=== PATIENT | female | born 1975 | race Caucasian/White ===

== ENCOUNTER 2018-08-08 07:25 | Emergency (ER) | payer BC ==
--- OUTSIDE RECORDS SUMMARY | 2018-08-08 07:41 | XMS REPORT ---
:1975 External Reference #:[id number] Author Organization [facility] Address [address], [address] [address] Phone [phone] Care Team Providers Name Role Phone Daiana Blair M.D. Care Team Information Presentation Manager Unavailable Johnathon Mcarthur MD Primary Care Physician Unavailable Payers Type Date Identification Numbers Payment Provider Subscriber Health Maintenance Policy Number: [facility] [id number] Group Name: [employer] [address] [address] PayID: [id number] [place] [address] Problems Date Description Provider Status Onset: 08/01/2018 Thoracic aortic ectasia Alma Blair Active Onset: 08/01/2018 Essential hypertension Alma Blair Active Onset: 01/08/2018 Sarcoidosis ECHO Active Onset: 01/08/2018 Aneurysm of thoracic aorta ECHO Active Family History Date Family Member(s) Problem(s) Comments Father Sleep Apnea Living Father Hypertension Father Arthritis Mother Sleep Apnea Living Mother Arthritis First Sister Asthma Social History Type Date Description Comments Marital Status Lives With Spouse 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 Use Occasionally consumes alcohol Smoking Patient is a former smoker less than 1/2 ppw Daily Caffeine Consumes on average 2 cups of coffee per day Exercise Type/Frequency Exercises regularly Allergies, Adverse Reactions, Alerts Date Description Reaction Status Severity Comments 07/24/2018 Levaquin active Hives Medications Medication Date Status Form Strength Qnty SIG Indications Ordering Provider Labetalol HCL Active Tablets 100mg 180tab 1 tablet I77.810 Kamala Blair s by mouth Alma twice a day Vitamin D 0 Active Tablets 1000Unit 1 by Unknown 000 mouth qd Nexium Active Capsules DR 40mg 1 by Unknown 000 mouth every day Ranitidine Active Tablets 150mg 1 by Unknown HCL 000 mouth every day prn Gabapentin Active Capsules 300mg 1po qam Unknown 000 and 2po qpm Ventolin HFA Active Aerosol 108(90Base prn Unknown 000 ) mcg/Act Zyrtec Active Tablets 10mg 1 by Unknown Allergy 000 mouth every day Ramipril Active Capsules 1.25mg 1po qd Blue, 000 prn MD Johnathon Flaxseed Oil Active Capsules 1200mg 1po qd Unknown 000 Vitamin B Active Tablets 1 by Unknown Complex 000 mouth every day Zantac 150 Active Tablets 150mg 1 by Unknown Maximum 000 mouth Strength every night at bedtime [facility] [place] Wort Active Capsules 300mg 1po bid Unknown 000 Vital Signs Date Vital Result Comment 08/01/2018 BP Systolic Right Arm 172 mmHg BP Diastolic Right Arm 92 mmHg Heart Rate 83 /min Respiratory Rate 16 /min Weight 67.00 lb Height 65 inches 5'5" BMI (Body Mass Index) 11.1 kg/m2 Results Description No Information Procedures Date CPT Code Description Status 08/01/2018 79302 Electrocardiogram Complete Completed 01/08/2018 12464 Echo, transthoracic, complete w/ Doppler and Color Flow Completed 01/30/2017 00214 Echo, transthoracic, complete w/ Doppler and Color Flow Completed 12/23/2015 2016m Unapplied 2015 Completed 11/04/2015 18522 Echo, transthoracic, complete w/ Doppler and Color Flow Completed Encounters Type Date Location Provider CPT E/M Dx Office Visit 08/01/2018 9:40a [facility] [address] I77.810 [place] Plan of Care Future Appointment(s):01/09/2019 10:00 am - Alma Blair at [facility]12/31/2018 9:15 am - ECHO at [id number]/03/2018 - Dimitris [id number] Thoracic aortic [id number] Essential (primary) hypertensionNew Medication:Labetalol HCL 100 mgNew Xrays:Cta, Pelvis, W/ & W /O ContrastCta Abdomen W/ & W/O ContrastEchocardiogram W/Color FlowFollow up :*needs CTA abdomen and pelvis dx: thoracic aortic dilation *start labetolol 100mg PO BID *needs repeat echocardiogram in December 2018 dx: thoracic aortic dilatation with follow up with me one week later
--- OUTSIDE RECORDS SUMMARY | 2018-08-08 07:41 | XMS REPORT | Continuity of Care Document ---
:1975 Author Organization [facility] Office Address [address] [place] [address] Phone Care Team Providers Name Role Phone Johnathon Mcarthur MD Unavailable Daiana Blair MD Unavailable Baron Lee MD Unavailable Sloan Leger Unavailable Dr. Alma Blair MD Unavailable Unavailable Unavailable Problems ANEMIA (D64.9) (285.9) MD Daiana Blair ASCENDING AORTIC ANEURYSM (I71.2) (441.2) MD Daiana Blair Prognosis: Ascending and Arch aneurysm. as of 19-Jul-2018 ASTHMA (J45.909) (493.90) VERONICA Barnes Karla DYSPNEA (R06.00) (786.09) MD Daiana Blair ENVIRONMENTAL ALLERGIES (Z91.09) (V15.09) MD Daiana Blair GERD (GASTROESOPHAGEAL REFLUX DISEASE) (K21.9) (530.81) MD Daiana Blair HIP PAIN, BILATERAL (M25.551) (719.45) MD Daiana Blair HISTORY OF SHINGLES (Z86.19) (V12.09) MD Daiana Blair HTN (HYPERTENSION) (I10) (401.9) MD Daiana Blair INFLUENZA B (J10.1) (487.1) MD Daiana Blair NEUROPATHY (G62.9) (355.9) MD Daiana Blair OBESITY (E66.9) (278.00) MD Daiana Blair SARCOIDOSIS, LUNG (D86.0) (135) MD Daiana Blair Comments: Mediastinal LAD, 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.9) MD Daiana Blair Allergies and Adverse Reactions Levaquin *FLUOROQUINOLONES* (Allergy) Reaction: Hives Medications Gabapentin 300 MG Oral Capsule; 2 (two) Capsule three times daily for 0 days Ordered: 21-Aug-2017 Start: 21-Aug-2017 Quantity: 540 MD Daiana Blair Refills: 3 NexIUM 40 MG Oral Capsule Delayed Release; 1 (one) Capsule DR daily for 90 days Ordered: 26-Apr-2018 Start: 26-Apr-2018 Quantity: 90 [facility] GOMEZ Refills: 3 RaNITidine HCl 150 MG Oral Tablet; 1 (one) Tablet daily for 90 days Ordered: 25-Jan-2018 Start: 25-Jan-2018 Quantity: 90 DeFruscio, JASON Bria Refills: 4 Ventolin HFA 108 (90 Base) MCG/ACT Inhalation Aerosol Solution; 1 (one) Puff QID PRN for 0 days Ordered: 21-Nov-2017 Start: 21-Nov-2017 Quantity: 1 MD Daiana Blair Refills: 11 Vitamin D 1000 UNIT Oral Tablet; 1 daily (1000 UNIT) ZYRTEC ALLERGY, 10MG (Oral Tablet); (10 MG) ALBUTEROL SULFATE, (2.5 Status: Inactive MG/3ML)0.083% (Inhalation Nebulization Solution); ((2.5 MG/3ML) 0.083%) Fish Oil Concentrate 1000 MG Status: Inactive Oral Capsule; 1 (one) daily (1000 MG) FLONASE ALLERGY RELIEF, 50MCG/ACT (Nasal Suspension); 1 (one) Suspension Suspension twice daily for 0 days Ordered: 02-Jun-2016 Start: 21-Jan-2016 End: 02-Jun-2016 Quantity: 3 VERONICA Hall Status: Inactive Refills: 3 Folic Acid 1 MG Oral Tablet; 1 (one) Tablet daily for 0 days Ordered: 2016 Start: 02-Jun-2016 End: 21-Aug-2017 Quantity: 30 BarnesVERONICA Status: Inactive Refills: 6 MAGNESIUM GLUCONATE, 250MG Status: Inactive (Oral Tablet); 1 daily (250 MG) MONTELUKAST SODIUM, 10MG Status: Inactive (Oral Tablet); (10 MG) PredniSONE 5 MG Oral Tablet; 2 (two) Tablet daily for 30 days Ordered: Start: 30-Nov-2017 End: 26-Dec-2017 Quantity: 60 BarnesVERONICA Status: Inactive Refills: 1 PREDNISONE, 5MG (Oral Tablet); one Tablet Tablet daily for 30 days Ordered: 21-Jan-2016 Start: 15-Oct-2015 End: 21-Jan-2016 Quantity: 30 VERONICA May Status: Inactive Refills: 1 PREDNISONE, 5MG (Oral Tablet); 1 (one) Tablet daily as directed for 30 days Ordered: 03-May-2016 Start: 03-May-2016 End: 02-Jun-2016 Quantity: 100 Areli, Jasson Owen Status: Inactive Refills: 0 Comments: start 30 mg (6 tabs) x 2 days25 mg (5 tabs) x 1 day and decrease by 1 tab daily and remain at 10 mg (2 tabs) per day until notified Ramipril 5 MG Oral Capsule; 1 Capsule daily for 0 days Ordered: 26-Dec-2017 Start: 21-Nov-2017 End: 26-Dec-2017 Quantity: 30 VERONICA Barnes Status: Inactive Refills: 1 SYMBICORT, 160-4.5MCG/ACT Status: Inactive (Inhalation Aerosol); (160-4.5 MCG/ACT) Tamiflu 75 MG Oral Capsule; 1 (one) Capsule BID for 0 days Ordered: 2017 Start: 21-Nov-2017 End: 26-Dec-2017 Quantity: 10 VERONICA Barnes Status: Inactive Refills: 0 THEOPHYLLINE ER, 200MG (Oral Status: Inactive Tablet Extended Release 12 Hour); (200 MG) Vitamin B Complex Oral Status: Inactive Tablet; daily Zofran ODT 4 MG Oral Tablet Disintegrating; 1 (one) Tablet Disperse Tablet Disperse daily with methotrexate if needed for 0 days Ordered: 21-Aug-2017 Start: 21-Jan-2016 End: 21-Aug-2017 Quantity: 5 VERONICA Barnes Status: Inactive Refills: 1 ACIDOPHILUS (Oral Capsule) End: 01-Sep-2016 Status: Discontinued IRON SUPPLEMENT, 325 (65 End: 02-Jun-2016 Fe)MG (Oral Tablet); 1 daily Status: Discontinued (325 (65 Fe) MG) METHOTREXATE, 2.5MG (Oral Tablet); 3 (three) Tablet once a week for 0 days Ordered: 01-Sep-2016 Start: 02-Jun-2016 End: 01-Sep-2016 Quantity: 15 VERONICA Hall Status: Discontinued Refills: 3 PREDNISONE, 1MG (Oral Tablet); 1 am, 5 pm Tablet two times daily for 0 days Ordered: 01-Sep-2016 Start: 01-Apr-2016 End: 01-Sep-2016 Quantity: 90 VERONICA Hall Status: Discontinued Refills: 3 RAMIPRIL, 5MG (Oral Capsule); End: 01-Sep-2016 daily (5 MG) Status: Discontinued VITAMIN C ER, 500MG (Oral End: 02-Jun-2016 Capsule Extended Release); 1 Status: Discontinued daily (500 MG) XOPENEX, 1.25MG/3ML End: 01-Sep-2016 (Inhalation Nebulization Status: Discontinued Solution); as needed (1.25 Comments: Medication taken as needed. MG/3ML) Flaxseed Oil 1200 MG Oral Status: Other Capsule; (1200 MG) Labetalol HCl 100 MG Oral Start: 01-Aug-2018 Tablet; (100 MG) Status: Other Comments: Qty: 180 tabs; Refills: 3 Ramipril 1.25 MG Oral Status: Other Capsule; (1.25 MG) St Reyn[place] Wort 300 MG Oral Status: Other Capsule; (300 MG) Procedures EXHALED NITRIC OXIDE MEASUREMENT VERONICA Barnes Status: Completed 2017 (51105) REST OXIMETRY (42467) Pooja Melgar Status: Completed 21-Aug-2017 RESPIRATORY FLOW VOLUME LOOP Pooja Melgar Status: Completed 21-Aug-2017 (04175) RESPIRATORY FLOW VOLUME LOOP MD Daiana Blair Status: Completed 01-Dec-2016 (34962) PRE AND POST W/ RT (32398) MD Daiana Blair Status: Completed 01-Dec-2016 RESPIRATORY FLOW VOLUME LOOP MD Daiana Blair Status: Completed 01-Sep-2016 (94440) PRE AND POST W/ RT (15839) MD Daiana Blair Status: Completed 01-Sep-2016 AIRFLOW RESISTANCE MEASUREMENT: MD Daiana Blair Status: Completed 2015 PULM FUNCT TEST OSCILLOMETRY (09113) TOTAL VITAL CAPACITY (73261) MD Daiana Blair Status: Completed 22-Mar-2016 TOTAL BODY PLETHYSMOGRAPHY: AIRWAY MD Daiana Blair Status: Completed Feb-2016 CLOSING VOLUME MEASUREMENT: PULM FUNCT TST PLETHYSMOGRAP (65392) RESPIRATORY FLOW VOLUME LOOP MD Daiana Blair Status: Completed 22-Mar-2016 (23323) THORACIC GAS VOLUME: AIRWAY MD Daiana Blair Status: Completed 22-Mar-2016 CLOSING VOLUME MEASUREMENT: PULM FUNCTION TEST BY GAS (83670) DLCO (CARBON MONOXIDE DIFFUSING MD Daiana Blair Status: Completed 2015 CAPACITY) (23149) PRE AND POST (46961) MD Daiana Blair Status: Completed 22-Mar-2016 RESPIRATORY FLOW VOLUME LOOP MD Daiana Blair Status: Completed 24-Jun-2015 (14454) FeNO Barnes, DICE MANAGER Karla Status: Completed Comments: 15 PPB Flu Vaccine Barnes, DICE MANAGER Karla Status: Completed 14-Aug-2017 Comments: Workplace Flu Vaccine Barnes, DICE MANAGER Karla Status: Completed 29-Sep-2015 PFT MD Daiana Blair Status: Completed 21-Aug-2017 Comments: Minimal Obstruction. Without Reversibility. PFT MD Daiana Blair Status: Completed 22-Mar-2016 Comments: Moderate Obstruction. Without Reversibility. No Restriction. Normal Diffusion Capacity. PFT MD Daiana Blair Status: Completed 01-Sep-2016 Comments: Moderate Obstruction. PFT MD Daiana Blair Status: Completed 01-Dec-2016 Comments: Moderate Obstruction. Without Reversibility. PFT MD Daiana Blair Status: Completed Comments: Moderate Obstruction. Without Reversibility. Uterline Fibroids MD Daiana Blair Status: Completed Wedge Resection MD Daiana Blair Status: Completed 06-Jan-2016 Comments: Dr Alcantar Procedure: EXHALED NITRIC OXIDE MEASUREMENT Date: 26-Dec-2017 11:08 ([id number])Result: VERONICA Barnes Karla [Questions] Use of inhaled or oral corticosteroid: #14 Comments: Evaluated patient's nitric oxide. The results were ppb. Procedure: PRE AND POST W/ RT ([id number])Result: Date: 21-Aug-2017 14:58 Hemoptysis: No Status: Completed 21-Aug-2017 15:02 MD Daiana Blair Procedure: CT THORAX W/O DYE ([id number])Result: Status: Completed 01-Dec-2016 16:05 Are you or could you become MD Daiana Blair ?: No; When was you last CXR/CT?: over week ago; Refrigeration Service Inspector: DIAN Díaz Procedure: CT THORAX W/O DYE ([id number])Result: Status: Completed 01-Dec-2016 8:59 Are you or could you become MD Daiana Blair ?: No; When was you last CXR/CT?: over week ago; Refrigeration Service Inspector: DIAN Díaz Procedure: CT THORAX W/O DYE ([id number])Result: Status: Completed 15-Oct-2015 14:22 Are you or could you become MD Daiana Blair ?: No; When was you last CXR/CT?: OVER A WEEK AGO; Refrigeration Service Inspector: DIAN Díaz Procedure: PRE AND POST ([id number])Result: Status: Completed 24-Jun-2015 9:23 Hemoptysis: No MD Daiana Blair Procedure: CHEST X-RAY, PA AND LATERAL Date: 24-Jun-2015 9:02 ([id number])Result: Status: Completed 24-Jun-2015 9:03 Are you or could you become MD Daiana Blair ?: No; When was you last CXR/CT?: over a week ago; Refrigeration Service Inspector: DIAN Díaz Immunizations Influenza (3 years and up) On: 30-Jun-2014 Comments:work Influenza (3 years and up) On: 29-Sep-2015 Comments:approx. date Influenza (3 years and up) On: 29-Aug-2016 Family History Asthma Status: Active Comments: Sister. Sleep Apnea Status: Active Comments: Mother. Father. Social History Alcohol use: Occasional alcohol use. Caffeine use: Coffee. 2 servings / day. 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 No drug use Tobacco use: Former smoker. Comments: started age 20, quit age 38. Less than 1/2 pack per week max Former smoker Female Plan of Treatment AIRFLOW RESISTANCE MEASUREMENT: PULM Start: 17-Jan-2019 Intent FUNCT TEST OSCILLOMETRY (93434) DLCO (CARBON MONOXIDE DIFFUSING Start: 17-Jan-2019 Intent CAPACITY) (70227) EXHALED GAS NITRIC OXIDE MEASUREMENT Start: 17-Jan-2019 Intent (MOLES/VOLUME) (93029) PRE AND POST (37237) Start: 17-Jan-2019 Intent RESPIRATORY FLOW VOLUME LOOP (31728) Start: 17-Jan-2019 Intent THORACIC GAS VOLUME: AIRWAY CLOSING Start: 17-Jan-2019 Intent VOLUME MEASUREMENT: PULM FUNCTION TEST BY GAS (90171) TOTAL BODY PLETHYSMOGRAPHY: AIRWAY Start: 17-Jan-2019 Intent CLOSING VOLUME MEASUREMENT: PULM FUNCT TST PLETHYSMOGRAP (15784) TOTAL VITAL CAPACITY (23118) Start: 17-Jan-2019 Intent COMPLETE ECHOCARDIOGRAPHY (81365) Start: 26-Dec-2017 Intent Comments: CV Group CXR PA & LAT (40140) Start: 26-Dec-2017 Intent COMPLETE ECHOCARDIOGRAPHY (92951) Start: 25-Jan-[address] HIP WO CONTRAST (57493) Start: 01-Sep-2016 Intent Comments: Avascular Necrosis ECHOCARDIOGRAM (93995) Start: 02-Nov-2015 Intent BRONCHOSCOPY WITH FLUOROSCOPY (73841) Start: 15-Oct-2015 Intent BRONCHOSCOPY IN ENDO (27122) Start: 24-Jun-2015 Intent Medical; FULL PFT 30 - Start: 16-Jan-2019 10:15 Appointment [facility]; FOLLOW UP 15 - 6 mnth fu 15 w/full Start: 16-Jan-2019 10:45 Appointment Request [facility] MD Daiana Blair Influenza A+B Ag, EIA (11547) Start: 21-Nov-2017 9:18 Request Comments: Rapid flu swab for Influenza A&B and RSV. COMPREHENSIVE METABOLIC PANEL, CMP (81220) Start: 21-Aug-2017 15:27 Request ANGTENSIN 1-CONVRT ENZYM (36731) Start: 21-Aug-2017 15:27 Request CBC & PLATELETS (36697) Start: 22-Mar-2016 12:05 Request COMPREHENSIVE METABOLIC PANEL, CMP (24663) Start: 22-Mar-2016 12:05 Request CBC, PLATELETS & AUT DIFF (35467) Start: 21-Jan-2016 15:31 Request FERRITIN (27296) Start: 21-Jan-2016 15:31 Request IRON BINDING CAPACITY (TIBC) (33985) Start: 21-Jan-2016 15:31 Request IRON ([id number]) Start: 21-Jan-2016 15:31 Request COMPREHENSIVE METABOLIC PANEL, CMP (50160) Start: 21-Jan-2016 15:30 Request PTT (ACTIVATED PARTIAL THROMBOPLASTIN TIME) (94077) Start: 03-Jul-2015 11:36 Request PT (PROTHROMBIN TIME) (68485) Start: 03-Jul-2015 11:36 Request HYPERSENS PNEUMO 2 (88824) Start: 24-Jun-2015 10:44 Request HYPERSENS PNEUMO 1 (03425) Start: 24-Jun-2015 10:44 Request BRAIN NATIURETIC PEPTIDE ([id number]) Start: 24-Jun-2015 10:44 Request ASCENDING AORTIC ANEURYSM : Referral to Cardiology - CV Group Dr. Blair Indication: ASCENDING AORTIC ANEURYSM SARCOIDOSIS, LUNG : Referral to Rheumatology - [facility] Indication: SARCOIDOSIS, LUNG DYSPNEA : Pt Education: Bronchoscopy Indication: DYSPNEA ASCENDING AORTIC ANEURYSM : Referral to Cardiology - [facility] Payal Blair Indication: ASCENDING AORTIC ANEURYSM ASTHMA : Pt Education: Bronchoscopy Indication: ASTHMA ASCENDING AORTIC ANEURYSM : Referral to Cardiology - [facility]. Aortic aneurysm and tachycardia. Indication: ASCENDING AORTIC ANEURYSM Results COMPREHENSIVE METABOLIC Ordered On: 31-Aug-2016 9:34 PANEL, CMP ([id number]) 31-Aug-2016 GFR INTERPRETATION (Normal) Comments: NORMAL KIDNEY FUNCTION OR MILD DISEASE - GFR >OR=60CHRONIC KIDNEY DISEASE - GFR 15 - 59RENAL FAILURE - GFR <15 Est. GFR calculation based on the MDRDstudy equation, which assumes a steadystate for creatinine. Est. GFR should notbe used for medication dosing.Unless otherwise specified, testing performed by [facility] [place] [address] [address] GFR ( AMER) >60 {ml/min/1.73m2} (Normal) GFR >60 {ml/min/1.73m2} (Normal) ALT (SGPT) 31 U/L (Normal) Range: 12 U/L - 78 U/L AST (SGOT) 19 U/L (Normal) Range: 11 U/L - 39 U/L BILIRUBIN,TOTAL 0.5 mg/dL Range: 0.0 mg/dL - 1.0 mg/dL (Normal) ALKALINE PHOSPHATASE 135 U/L Range: 45 U/L - 117 U/L (Abnormal) ALB/GLOB RATIO 1.0 {RATIO} (Normal) GLOBULIN 3.6 g/dL (Normal) Range: 2.7 g/dL - 4.3 g/dL ALBUMIN 3.7 g/dL (Normal) Range: 3.5 g/dL - 4.6 g/dL TOTAL PROTEIN 7.3 g/dL Range: 6.4 g/dL - 8.2 g/dL (Normal) CALCIUM 9.2 mg/dL (Normal) Range: 8.4 mg/dL - 10.2 mg/dL GLUCOSE 87 mg/dL (Normal) Range: 70 mg/dL - 99 mg/dL BUN/CREAT RATIO 16.3 {RATIO} Range: 10.0 {RATIO} - 20.0 {RATIO} (Normal) CREATININE 0.80 mg/dL Range: 0.60 mg/dL - 1.00 mg/dL (Normal) UREA NITROGEN 13 mg/dL Range: 7 mg/dL - 24 mg/dL (Normal) ANION GAP 8 mmol/L (Normal) Range: 7 mmol/L - 16 mmol/L CO2 30 mmol/L (Normal) Range: 22 mmol/L - 31 mmol/L CHLORIDE 105 mmol/L (Normal) Range: 100 mmol/L - 108 mmol/L POTASSIUM 4.3 mmol/L (Normal) Range: 3.6 mmol/L - 5.2 mmol/L SODIUM 143 mmol/L (Normal) Range: 136 mmol/L - 145 mmol/L CBC, PLATELETS & AUT DIFF Ordered On: 31-Aug-2016 9:34 ([id number]) 31-Aug-2016 BASO # 0.1 10*3/uL (Normal) Range: 0.0 10*3/uL - 0.2 10*3/uL Comments: Unless otherwise specified, testing performed by [facility] of [address] [address] EOS # 0.6 10*3/uL (Abnormal) Range: 0.0 10*3/uL - 0.5 10*3/uL MONO # 0.5 10*3/uL (Normal) Range: 0.0 10*3/uL - 0.8 10*3/uL LYMPH # 1.6 10*3/uL (Normal) Range: 1.2 10*3/uL - 4.8 10*3/uL NEUT # 5.4 10*3/uL (Normal) Range: 1.8 10*3/uL - 7.7 10*3/uL BASO % 0.7 % (Normal) Range: 0.0 % - 4.0 % EOS % 7.8 % (Abnormal) Range: 0.0 % - 5.0 % MONO % 6.3 % (Normal) Range: 0.0 % - 8.0 % LYMPH % 19.4 % (Normal) Range: 16.0 % - 52.0 % NEUT % 65.8 % (Normal) Range: 35.0 % - 75.0 % MPV 7.7 fL (Normal) Range: 7.1 fL - 10.7 fL PLT 356 10*3/uL (Normal) Range: 150 10*3/uL - 450 10*3/uL RDW 13.6 % (Normal) Range: 10.5 % - 14.5 % MCHC 33.3 g/dL (Normal) Range: 32.0 g/dL - 36.0 g/dL MCH 28.6 pg (Normal) Range: 27.0 pg - 32.0 pg MCV 86.0 fL (Normal) Range: 80.0 fL - 95.0 fL HCT 38.9 % (Normal) Range: 36.0 % - 47.0 % HGB 12.9 g/dL (Normal) Range: 12.0 g/dL - 16.0 g/dL RBC 4.52 10*6/uL (Normal) Range: 4.00 10*6/uL - 5.40 10*6/uL WBC 8.3 10*3/uL (Normal) Range: 4.1 10*3/uL - 11.0 10*3/uL CBC & PLATELETS (AUTO) Ordered On: 03-Jul-2015 11:37 Comments: Please run manual ([id number]) differential 03-Jul-2015 CBC COMMENTS scanned (Normal) BLOOD COUNT, PLATELET, AUTOMATED scanned (Normal) RDW (RED CELL DISTRIBUTION WIDTH) scanned (Normal) MCHC (MEAN CORPUSCULAR Range: 33 g/dL - 37 g/dL HEMOGLOBIN CONCENTRATI scanned g/dL (Normal) MCH (MEAN CORPUSCULAR Range: 27 pg - 31 pg HEMOGLOBIN) scanned pg (Normal) MCV (MEAN CORPUSCULAR VOLUME) Range: 76 um3 - 100 um3 scanned um3 (Normal) HCT (HEMATOCRIT) scanned % Range: 42.9 % - 49.1 % (Normal) HGB (HEMOGLOBIN) scanned g/dL Range: 14.4 g/dL - 16.6 g/dL (Normal) RBC scanned 10*6/uL (Normal) Range: 4.73 10*6/uL - 5.49 10*6/uL WBC scanned 10*9{Cells}/L Range: 4.5 10*9{Cells}/L - 11.0 10*9{Cells}/L (Normal) A. FUMIGATUS IGE @ ([id number]) Ordered On: 24-Jun-2015 10:46 24-Jun-2015 A. FUMIGATUS IGE @ scanned (Normal) IMMUNOGLOBULIN E (IgE) Ordered On: 24-Jun-2015 10:46 ([id number]) 24-Jun-2015 IMMUNOGLOBULIN E (IgE) Range: 0 mg/dL - 380 mg/dL scanned mg/dL (Normal) BASIC METABOLIC PANEL, BMP Ordered On: 24-Jun-2015 10:46 ([id number]) 24-Jun-2015 GLUCOSE scanned mg/dL Range: 75 mg/dL - 105 mg/dL (Normal) CREATININE BLOOD scanned Range: 0.8 mg/dL - 1.4 mg/dL mg/dL (Normal) BUN (BLOOD UREA NITROGEN) Range: 5.0 mg/dL - 20.0 mg/dL scanned mg/dL (Normal) CARBON DIOXIDE (BICARB) Range: 23.0 mmol/L - 29.0 mmol/L scanned mmol/L (Normal) CHLORIDE BLOOD scanned meq/L Range: 97.0 meq/L - 107.0 meq/L (Normal) POTASSIUM SERUM scanned meq/L Range: 3.5 meq/L - 5 meq/L (Normal) SODIUM SERUM scanned mmol/L Range: 136 mmol/L - 145 mmol/L (Normal) ASPIRGILLUS ANTIBODY BY CF & Ordered On: 24-Jun-2015 10:46 ID ([id number]) 24-Jun-2015 ASPIRGILLUS ANTIBODY scanned (Normal) ANGTENSIN 1-CONVRT ENZYM Ordered On: 24-Jun-2015 10:46 ([id number]) 24-Jun-2015 ANGTENSIN 1-CONVRT ENZYM scanned (Normal) Vital Signs 19-Jul-2018 8:49 Temperature 98.5 f Comments: Method: Tympanic Pulse 77 /min Comments: Pattern: Regular Respiration Rate 12 /min Comments: Pattern: Unlabored O2 SAT 98 % Comments: Room air BP Systolic 128 mm[Hg] Comments: Patient Position: Sitting; Cuff Location: Left Arm; Cuff Size: Standard BP Diastolic 82 mm[Hg] Comments: Patient Position: Sitting; Cuff Location: Left Arm; Cuff Size: Standard Weight 269 lb Height 65 in BMI 44.76 kg/m2 BSA 2.24 m2 26-Dec-2017 11:09 Temperature 99.5 f Comments: Method: Tympanic Pulse 74 /min Comments: Pattern: Regular Respiration Rate 14 /min Comments: Pattern: Unlabored O2 SAT 98 % Comments: Room air BP Systolic 118 mm[Hg] Comments: Patient Position: Sitting; Cuff Location: Left Arm; Cuff Size: Standard BP Diastolic 70 mm[Hg] Comments: Patient Position: Sitting; Cuff Location: Left Arm; Cuff Size: Standard Weight 250 lb Height 65 in BMI 41.6 kg/m2 BSA 2.18 m2 21-Nov-2017 8:54 Temperature 100.5 f Comments: Method: Tympanic Pulse 101 /min Comments: Pattern: Regular Respiration Rate 16 /min Comments: Pattern: Unlabored O2 SAT 95 % Comments: Room air BP Systolic 156 mm[Hg] Comments: Patient Position: Sitting; Cuff Location: Left Arm; Cuff Size: Standard BP Diastolic 98 mm[Hg] Comments: Patient Position: Sitting; Cuff Location: Left Arm; Cuff Size: Standard Weight 270 lb Height 65 in BMI 44.93 kg/m2 BSA 2.25 m2 21-Aug-2017 15:02 Temperature 99 f Comments: Method: Tympanic Pulse 77 /min Comments: Pattern: Regular Respiration Rate 12 /min Comments: Pattern: Unlabored O2 SAT 97 % Comments: Room air BP Systolic 138 mm[Hg] Comments: Patient Position: Sitting; Cuff Location: Left Arm; Cuff Size: Standard BP Diastolic 88 mm[Hg] Comments: Patient Position: Sitting; Cuff Location: Left Arm; Cuff Size: Standard Weight 262 lb Height 65 in BMI 43.6 kg/m2 BSA 2.22 m2 01-Dec-2016 9:09 Temperature 97.7 f Pulse 72 /min Comments: Pattern: Regular Respiration Rate 16 /min Comments: Pattern: Unlabored O2 SAT 97 % Comments: Room air BP Systolic 130 mm[Hg] Comments: Patient Position: Sitting; Cuff Location: Left Arm; Cuff Size: Large BP Diastolic 98 mm[Hg] Comments: Patient Position: Sitting; Cuff Location: Left Arm; Cuff Size: Large Weight 258 lb Height 65 in BMI 42.93 kg/m2 BSA 2.2 m2 01-Sep-2016 11:20 Temperature 99.2 f Comments: Method: Tympanic Pulse 80 /min Comments: Pattern: Regular Respiration Rate 16 /min Comments: Pattern: Unlabored O2 SAT 97 % Comments: Room air BP Systolic 130 mm[Hg] Comments: Patient Position: Sitting; Cuff Location: Left Arm; Cuff Size: Large BP Diastolic 90 mm[Hg] Comments: Patient Position: Sitting; Cuff Location: Left Arm; Cuff Size: Large Weight 264 lb Height 65 in BMI 43.93 kg/m2 BSA 2.23 m2 02-Jun-2016 9:16 Temperature 99.2 f Comments: Method: Tympanic Pulse 88 /min Comments: Pattern: Regular Respiration Rate 16 /min Comments: Pattern: Unlabored O2 SAT 98 % Comments: Room air BP Systolic 130 mm[Hg] Comments: Patient Position: Sitting; Cuff Location: Left Arm; Cuff Size: Large BP Diastolic 84 mm[Hg] Comments: Patient Position: Sitting; Cuff Location: Left Arm; Cuff Size: Large Weight 264 lb Height 65 in BMI 43.93 kg/m2 BSA 2.23 m2 22-Mar-2016 11:39 Temperature 98.3 f Comments: Method: Tympanic Pulse 78 /min Comments: Pattern: Regular Respiration Rate 14 /min Comments: Pattern: Unlabored O2 SAT 97 % Comments: Room air BP Systolic 114 mm[Hg] Comments: Patient Position: Sitting; Cuff Location: Left Arm; Cuff Size: Standard BP Diastolic 74 mm[Hg] Comments: Patient Position: Sitting; Cuff Location: Left Arm; Cuff Size: Standard Weight 258 lb Height 65 in BMI 42.93 kg/m2 BSA 2.2 m2 21-Jan-2016 14:50 Temperature 98.4 f Comments: Method: Tympanic Pulse 97 /min Comments: Pattern: Regular Respiration Rate 15 /min Comments: Pattern: Unlabored O2 SAT 98 % Comments: Room air BP Systolic 136 mm[Hg] Comments: Patient Position: Sitting; Cuff Location: Left Arm; Cuff Size: Standard BP Diastolic 84 mm[Hg] Comments: Patient Position: Sitting; Cuff Location: Left Arm; Cuff Size: Standard Weight 255 lb Height 65 in BMI 42.43 kg/m2 BSA 2.19 m2 26-Nov-2015 13:54 Temperature 98.4 f Comments: Method: Tympanic Pulse 80 /min Comments: Pattern: Regular Respiration Rate 14 /min Comments: Pattern: Unlabored O2 SAT 97 % Comments: Room air BP Systolic 140 mm[Hg] Comments: Patient Position: Sitting; Cuff Location: Left Arm; Cuff Size: Large BP Diastolic 94 mm[Hg] Comments: Patient Position: Sitting; Cuff Location: Left Arm; Cuff Size: Large Weight 253 lb Height 65 in BMI 42.1 kg/m2 BSA 2.19 m2 15-Oct-2015 15:19 Temperature 98.8 f Comments: Method: Tympanic Pulse 80 /min Comments: Pattern: Regular Respiration Rate 14 /min Comments: Pattern: Unlabored O2 SAT 98 % Comments: Room air BP Systolic 132 mm[Hg] Comments: Patient Position: Sitting; Cuff Location: Left Arm; Cuff Size: Standard BP Diastolic 76 mm[Hg] Comments: Patient Position: Sitting; Cuff Location: Left Arm; Cuff Size: Standard Weight 250 lb Height 65 in BMI 41.6 kg/m2 BSA 2.18 m2 16-Jul-2015 15:25 Temperature 98.8 f Comments: Method: Tympanic Pulse 84 /min Comments: Pattern: Regular Respiration Rate 16 /min Comments: Pattern: Unlabored O2 SAT 97 % Comments: Room air BP Systolic 142 mm[Hg] Comments: Patient Position: Sitting; Cuff Location: Left Arm; Cuff Size: Large BP Diastolic 90 mm[Hg] Comments: Patient Position: Sitting; Cuff Location: Left Arm; Cuff Size: Large Weight 241 lb Height 65 in BMI 40.1 kg/m2 BSA 2.14 m2 24-Jun-2015 9:18 Temperature 98.6 f Comments: Method: Tympanic Pulse 102 /min Comments: Pattern: Regular Respiration Rate 15 /min Comments: Pattern: Unlabored O2 SAT 95 % Comments: Room air BP Systolic 140 mm[Hg] Comments: Patient Position: Sitting; Cuff Location: Left Arm; Cuff Size: Standard BP Diastolic 84 mm[Hg] Comments: Patient Position: Sitting; Cuff Location: Left Arm; Cuff Size: Standard Weight 240 lb Height 65 in BMI 39.94 kg/m2 BSA 2.14 m2 Advance Directives HIPAA - Effective on 12/02/2016. Expiration date unspecified. Effective: 2016 Scanned Document is available upon request. Consent of Care Agreement - Effective on 07/20/2018. Effective: 20-Jul-2018 Expiration date unspecified Encounters Office Visit 19-Jul-2018 8:40 To 19-Jul-2018 11:55 Encounter Reason: Sarcoidosis - The last office visit was 7 month(s) ago. Management changes made at the last visit include adding medication (Prednisone taper). Symptoms include cough and dyspnea. Onset was gradual year [facility] (s) ago. The symptoms occur intermittently. The episodes occur weekly. The patient describes this as moderate in severity and improving. Symptoms are exacerbated by exercise. Symptoms are relieved by re st, inhalers and corticosteroids. Associated symptoms include localized paresthesias, while associated symptoms do not include anorexia or night sweats. The patient is not currently being treated for th is problem. Pertinent medical history includes obesity. Note for "Sarcoidosis" : Ms Han is a 40 yo woman followed by me since the summer of 2014 for abnormal chest imaging and dyspnea. Sent for VAT S biopsy earlier this month with pathology demonstrating sarcoidosis. Currently on 5 mg daily of prednisone with incomplete symptom control.03/22/2016 : Since last visit Josephine has started on MTX 5 mg we ekly and has decreased prednisone to 2.5 mg daily. Chest tightness and wheezing is much improved. Still with dyspnea on exertion (climbing stairs). Tolerating MTX well thus far. Does endorse fatigue for ~48 hours after taking weekly dose. Occasional headache and nausea. 06/02/2016: URI at the beginning of April which resulted in flare of respiratory symptoms. Required ABx and increased steroids. Underwen t lap hysterectomy earlier in April and has done well since surgery. On predniosne 6 mg daily and MTX 5 mg weekly at present. Still with morning stiffness to bilateral legs. Respiratory symtpms seem impr donita overall. No rescue inhaler use. No wheezing.09/01/2016: Since last visit Josephine has stopped prednisone and MTX and started on supplements. Feeling overall improved. Still with BRITTON which she feels i s deconditioning. Complaining of hip pain which has worsened since stopping MTX. No worsening of wheezing, chest tightness. 12/01/2016: Remains off immunomodifying therapy. Using supplements (seaweed) whi ch she started shortly before last visit. Denies wheezing, cough. Still has BRITTON which she attributes to deconditioning. Scheduled to see rheumatology next week. Recent hip imaging with altagracia melgoza.08/21/2017: Since last visit Josephine has remains on her supplements. Brief period off (2 months) with percieved relaps so has been using them again for 1 months. Complaints of vague chest pains (wor se with laughing) and discomfort that appeared somewhat unexpectedly and is perhaps slightly better now. Also had issues with some MSK neck problems and was on steroids earlier this summer.12/26/2017: Se en last month with increased cough, wheeze, fever, malaise. FluB+ and treated with Tamiflu. Wheeze and dyspnea persisted and steroids started. Used prednisone for a couple of weeks with improvement and was then able to stop. Encounter Diagnosis: ASTHMA, SARCOIDOSIS, LUNG, ASCENDING AORTIC ANEURYSM Office Visit 26-Dec-2017 10:57 To 26-Dec-2017 12:04 Encounter Reason: Sarcoidosis - The last office visit was 1 month(s) ago. Management changes made at the last visit include adding medication (Tamiflu, Prednisone) and ordering test(s) (CXR). Symptoms include cough and d [facility] yspnea. Onset was gradual year(s) ago. The symptoms occur intermittently. The episodes occur weekly. The patient describes this as moderate in severity and improving. Symptoms are exacerbated by exercis e. Symptoms are relieved by rest, inhalers and corticosteroids. Associated symptoms include localized paresthesias, while associated symptoms do not include anorexia or night sweats. The patient is not currently being treated for this problem. Pertinent medical history includes obesity. Note for "Sarcoidosis": Ms Han is a 40 yo woman followed by me since the summer of 2014 for abnormal chest michael ging and dyspnea. Sent for VATS biopsy earlier this month with pathology demonstrating sarcoidosis. Currently on 5 mg daily of prednisone with incomplete symptom control.03/22/2016: Since last visit Moose fairchild has started on MTX 5 mg weekly and has decreased prednisone to 2.5 mg daily. Chest tightness and wheezing is much improved. Still with dyspnea on exertion (climbing stairs). Tolerating MTX well thus far. Does endorse fatigue for ~48 hours after taking weekly dose. Occasional headache and nausea. 06/02/2016: URI at the beginning of April which resulted in flare of respiratory symptoms. Required ABx an d increased steroids. Underwent lap hysterectomy earlier in April and has done well since surgery. On predniosne 6 mg daily and MTX 5 mg weekly at present. Still with morning stiffness to bilateral legs. Respiratory symtpms seem improved overall. No rescue inhaler use. No wheezing.09/01/2016: Since last visit Josephine has stopped prednisone and MTX and started on supplements. Feeling overall improved. St ill with BRITTON which she feels is deconditioning. Complaining of hip pain which has worsened since stopping MTX. No worsening of wheezing, chest tightness. 2016: Remains off immunomodifying therapy. U sing supplements (seaweed) which she started shortly before last visit. Denies wheezing, cough. Still has BRITTON which she attributes to deconditioning. Scheduled to see rheumatology next week. Recent hip imaging with spurring bilaterally.08/21/2017: Since last visit Josephine has remains on her supplements. Brief period off (2 months) with percieved relaps so has been using them again for 1 months. Compla ints of vague chest pains (worse with laughing) and discomfort that appeared somewhat unexpectedly and is perhaps slightly better now. Also had issues with some MSK neck problems and was on steroids ear lier this summer.12/26/2017: Seen last month with increased cough, wheeze, fever , malaise. FluB+ and treated with Tamiflu. Wheeze and dyspnea persisted and steroids started. Used prednisone for a couple of weeks with improvement and was then able to stop. Encounter Diagnosis: SARCOIDOSIS, LUNG, ASCENDING AORTIC ANEURYSM Order Only 26-Dec-2017 10:21 To 26-Dec-2017 10:21 Encounter Diagnosis: SARCOIDOSIS, LUNG [facility] Medication Order 30-Nov-2017 11:24 To 30-Nov-2017 11:26 Encounter Diagnosis: SARCOIDOSIS, LUNG [facility] Phone Encounter 21-Nov-2017 11:07 To 21-Nov-2017 11:10 Encounter Diagnosis: INFLUENZA B [facility] Office Visit 21-Nov-2017 8:43 To 21-Nov-2017 9:47 Encounter Reason: Flu like symptoms - The onset of the flu like symptoms has been acute and they have been occurring in a persistent pattern for 3 days. The flu like symptoms are described as moderate. Note for "Flu like [facility] symptoms": Fever started Monday night. + body aches. Temp or 100.5 in office today. Dyspnea and wheeze. Known sick contacts as patient works as a home care nurse and has had patient's that were Flu+., [ADDITIONAL REASON] Sarcoidosis - The last office visit was 3 month(s) ago. No changes in management were made at the last visit. Symptoms include cough, dyspnea and rash. Onset was gradual year(s) ago . The symptoms occur intermittently. The episodes occur daily. The patient describes this as moderate in severity and worsening. Symptoms are exacerbated by exercise. Symptoms are relieved by rest and c orticosteroids. Associated symptoms include localized paresthesias, while associated symptoms do not include anorexia or night sweats. The patient is not currently being treated for this problem. Pertin ent medical history includes obesity. Note for "Sarcoidosis": Ms Han is a 40 yo woman followed by me since the summer of 2014 for abnormal chest imaging and dyspnea. Sent for VATS biopsy earlier t his month with pathology demonstrating sarcoidosis. Currently on 5 mg daily of prednisone with incomplete symptom control.03/22/2016: Since last visit Josephine has started on MTX 5 mg weekly and has decre ased prednisone to 2.5 mg daily. Chest tightness and wheezing is much improved. Still with dyspnea on exertion (climbing stairs). Tolerating MTX well thus far. Does endorse fatigue for ~48 hours after t aking weekly dose. Occasional headache and nausea. 06/02/2016: URI at the beginning of April which resulted in flare of respiratory symptoms. Required ABx and increased steroids. Underwent lap hysterectomy earlier in April and has done well since surgery. On predniosne 6 mg daily and MTX 5 mg weekly at present. Still with morning stiffness to bilateral legs. Respiratory symtpms seem improved overall. No r escue inhaler use. No wheezing.09/01/2016: Since last visit Josephine has stopped prednisone and MTX and started on supplements. Feeling overall improved. Still with BRITTON which she feels is deconditioning. Complaining of hip pain which has worsened since stopping MTX. No worsening of wheezing, chest tightness. 12/01/2016: Remains off immunomodifying therapy. Using supplements (seaweed) which she started shona rtly before last visit. Denies wheezing, cough. Still has BRITTON which she attributes to deconditioning. Scheduled to see rheumatology next week. Recent hip imaging with spurring bilaterally.08/21/2017: Si nce last visit Josephine has remains on her supplements. Brief period off (2 months) with percieved relaps so has been using them again for 1 months. Complaints of vague chest pains (worse with laughing) and discomfort that appeared somewhat unexpectedly and is perhaps slightly better now. Also had issues with some MSK neck problems and was on steroids earlier this summer. , [ADDITIONAL REASON] Abnormal Chest Imaging - Radiographic findings include segmental atelectasis (RML collapse). Presentation included cough, chest pain and dyspnea. Past evaluation has included chest x-ray. Treatment has included antibiotics, cough suppressants and corticosteroids. Onset was sudden 2 week(s) ago. The patient describes this as moderate in severity and unchanged. Encounter Diagnosis: SARCOIDOSIS, LUNG, FLU-LIKE SYMPTOMS, HTN (HYPERTENSION) Office Visit 21-Aug-2017 14:39 To 21-Aug-2017 16:50 Encounter Reason: Sarcoidosis - The last office visit was 8 month(s) ago. No changes in management were made at the last visit. Symptoms include cough, dyspnea and rash. Onset was gradual year(s) ago. The symptoms occur [facility] intermittently. The episodes occur monthly. The patient describes this as moderate in severity and unchanged. Symptoms are exacerbated by exercise. Symptoms are relieved by rest. Associated symptoms inc lude localized paresthesias, while associated symptoms do not include anorexia or night sweats. The patient is not currently being treated for this problem. By report there is good compliance with treat ment. Pertinent medical history includes obesity. Note for "Sarcoidosis": Ms Han is a 40 yo woman followed by me since the summer of 2014 for abnormal chest imaging and dyspnea. Sent for VATS biop sy earlier this month with pathology demonstrating sarcoidosis. Currently on 5 mg daily of prednisone with incomplete symptom control.03/22/2016: Since last visit Josephine has started on MTX 5 mg weekly a nd has decreased prednisone to 2.5 mg daily. Chest tightness and wheezing is much improved. Still with dyspnea on exertion (climbing stairs). Tolerating MTX well thus far. Does endorse fatigue for ~48 h ours after taking weekly dose. Occasional headache and nausea. 06/02/2016: URI at the beginning of April which resulted in flare of respiratory symptoms. Required ABx and increased steroids. Underwent lap hysterectomy earlier in April and has done well since surgery. On predniosne 6 mg daily and MTX 5 mg weekly at present. Still with morning stiffness to bilateral legs. Respiratory symtpms seem improved o verall. No rescue inhaler use. No wheezing.09/01/2016: Since last visit Josephine has stopped prednisone and MTX and started on supplements. Feeling overall improved. Still with BRITTON which she feels is deco nditioning. Complaining of hip pain which has worsened since stopping MTX. No worsening of wheezing, chest tightness. 12/01/2016: Remains off immunomodifying therapy. Using supplements (seaweed) which she started shortly before last visit. Denies wheezing, cough. Still has BRITTON which she attributes to deconditioning. Scheduled to see rheumatology next week. Recent hip imaging with spurring bilaterally.: Since last visit Josephine has remains on her supplements. Brief period off (2 months) with percieved relaps so has been using them again for 1 months. Complaints of vague chest pains (worse wit h laughing) and discomfort that appeared somewhat unexpectedly and is perhaps slightly better now. Also had issues with some MSK neck problems and was on steroids earlier this summer. Encounter Diagnosis: SARCOIDOSIS, LUNG Order Only 25-Jan-2017 16:29 To 25-Jan-2017 16:30 Encounter Diagnosis: ASCENDING AORTIC ANEURYSM [facility] Office Visit 01-Dec-2016 8:53 To 01-Dec-2016 9:45 Encounter Reason: Sarcoidosis - The last office visit was 3 month(s) ago. Management changes made at the last visit include ordering test(s) (VATS). Symptoms include cough, dyspnea and rash. Onset was gradual 2 year(s) a [facility] go. The symptoms occur constantly. The episodes occur daily. The patient describes this as severe and unchanged. Symptoms are exacerbated by exercise. Symptoms are relieved by corticosteroids. Associate d symptoms include localized paresthesias, while associated symptoms do not include anorexia or night sweats. Current treatment includes oral corticosteroids. By report there is good compliance with darrell atment. Pertinent medical history includes obesity. Note for "Sarcoidosis": Ms Han is a 40 yo woman followed by me since the summer of 2014 for abnormal chest imaging and dyspnea. Sent for VATS bi opsy earlier this month with pathology demonstrating sarcoidosis. Currently on 5 mg daily of prednisone with incomplete symptom control.03/22/2016: Since last visit Josephine has started on MTX 5 mg weekly and has decreased prednisone to 2.5 mg daily. Chest tightness and wheezing is much improved. Still with dyspnea on exertion (climbing stairs). Tolerating MTX well thus far. Does endorse fatigue for ~48 hours after taking weekly dose. Occasional headache and nausea. 06/02/2016: URI at the beginning of April which resulted in flare of respiratory symptoms. Required ABx and increased steroids. Underwent la p hysterectomy earlier in April and has done well since surgery. On predniosne 6 mg daily and MTX 5 mg weekly at present. Still with morning stiffness to bilateral legs. Respiratory symtpms seem improved overall. No rescue inhaler use. No wheezing.09/01/2016: Since last visit Josephine has stopped prednisone and MTX and started on supplements. Feeling overall improved. Still with BRITTON which she feels is de conditioning. Complaining of hip pain which has worsened since stopping MTX. No worsening of wheezing, chest tightness. 12/01/2016: Remains off immunomodifying therapy. Using supplements (seaweed) which s he started shortly before last visit. Denies wheezing, cough. Still has BRITTON which she attributes to deconditioning. Scheduled to see rheumatology next week. Recent hip imaging with spurring bilaterally. Encounter Diagnosis: SARCOIDOSIS, LUNG, OBESITY Office Visit 01-Sep-2016 11:10 To 01-Sep-2016 13:05 Encounter Reason: Sarcoidosis - The last office visit was 3 month(s) ago. Management changes made at the last visit include ordering test(s) (VATS). Symptoms include cough, dyspnea and rash. Onset was gradual 2 year(s) a [facility] Office go. The symptoms occur constantly. The episodes occur daily. The patient describes this as severe and unchanged. Symptoms are exacerbated by exercise. Symptoms are relieved by corticosteroids. Associate d symptoms include localized paresthesias, while associated symptoms do not include anorexia or night sweats. Current treatment includes oral corticosteroids. By report there is good compliance with darrell atment. Pertinent medical history includes obesity. Note for "Sarcoidosis": Ms Han is a 40 yo woman followed by me since the summer of 2014 for abnormal chest imaging and dyspnea. Sent for VATS bi opsy earlier this month with pathology demonstrating sarcoidosis. Currently on 5 mg daily of prednisone with incomplete symptom control.03/22/2016: Since last visit Josephine has started on MTX 5 mg weekly and has decreased prednisone to 2.5 mg daily. Chest tightness and wheezing is much improved. Still with dyspnea on exertion (climbing stairs). Tolerating MTX well thus far. Does endorse fatigue for ~48 hours after taking weekly dose. Occasional headache and nausea. 06/02/2016: URI at the beginning of April which resulted in flare of respiratory symptoms. Required ABx and increased steroids. Underwent la p hysterectomy earlier in April and has done well since surgery. On predniosne 6 mg daily and MTX 5 mg weekly at present. Still with morning stiffness to bilateral legs. Respiratory symtpms seem improved overall. No rescue inhaler use. No wheezing.09/01/2016: Since last visit Josephine has stopped prednisone and MTX and started on supplements. Feeling overall improved. Still with BRITTON which she feels is de conditioning. Complaining of hip pain which has worsened since stopping MTX. No worsening of wheezing, chest tightness. Encounter Diagnosis: SARCOIDOSIS, LUNG, HIP PAIN, BILATERAL, ASTHMA Office Visit 02-Jun-2016 9:13 To 02-Jun-2016 10:25 Encounter Reason: Sarcoidosis - The last office visit was 3 month(s) ago. Management changes made at the last visit include ordering test(s) (VATS). Symptoms include cough, dyspnea and rash. Onset was gradual 2 year(s) a [facility] Office go. The symptoms occur constantly. The episodes occur daily. The patient describes this as severe and unchanged. Symptoms are exacerbated by exercise. Symptoms are relieved by corticosteroids. Associate d symptoms include localized paresthesias, while associated symptoms do not include anorexia or night sweats. Current treatment includes oral corticosteroids. By report there is good compliance with darrell atment. Pertinent medical history includes obesity. Note for "Sarcoidosis": Ms Han is a 40 yo woman followed by me since the summer of 2014 for abnormal chest imaging and dyspnea. Sent for VATS bi opsy earlier this month with pathology demonstrating sarcoidosis. Currently on 5 mg daily of prednisone with incomplete symptom control.03/22/2016: Since last visit Josephine has started on MTX 5 mg weekly and has decreased prednisone to 2.5 mg daily. Chest tightness and wheezing is much improved. Still with dyspnea on exertion (climbing stairs). Tolerating MTX well thus far. Does endorse fatigue for ~48 hours after taking weekly dose. Occasional headache and nausea. 06/02/2016: URI at the beginning of April which resulted in flare of respiratory symptoms. Required ABx and increased steroids. Underwent la p hysterectomy earlier in April and has done well since surgery. On predniosne 6 mg daily and MTX 5 mg weekly at present. Still with morning stiffness to bilateral legs. Respiratory symtpms seem improved overall. No rescue inhaler use. No wheezing. Encounter Diagnosis: ASTHMA, SARCOIDOSIS, LUNG Medication Order 03-May-2016 15:10 To 03-May-2016 16:57 Encounter Diagnosis: SARCOIDOSIS, LUNG [place] [facility] Medication Order 04-Apr-2016 10:30 To 04-Apr-2016 11:00 Encounter Diagnosis: GERD (GASTROESOPHAGEAL REFLUX DISEASE) [facility] Office Medication Order 01-Apr-2016 11:37 To 01-Apr-2016 11:38 Encounter Diagnosis: SARCOIDOSIS, LUNG [place] [facility] Office Visit 22-Mar-2016 11:17 To 22-Mar-2016 12:17 Encounter Reason: Sarcoidosis - The last office visit was 3 month(s) ago. Management changes made at the last visit include ordering test(s) (VATS). Symptoms include cough, dyspnea and rash. Onset was gradual 2 year(s) a [facility] go. The symptoms occur constantly. The episodes occur daily. The patient describes this as severe and unchanged. Symptoms are exacerbated by exercise. Symptoms are relieved by corticosteroids. Associate d symptoms include localized paresthesias, while associated symptoms do not include anorexia or night sweats. Current treatment includes oral corticosteroids. By report there is good compliance with darrell atment. Pertinent medical history includes obesity. Note for "Sarcoidosis": Ms Han is a 40 yo woman followed by me since the summer for abnormal chest imaging and dyspnea. Sent for VATS bi opsy earlier this month with pathology demonstrating sarcoidosis. Currently on 5 mg daily of prednisone with incomplete symptom control.03/22/2016: Since last visit Josephine has started on MTX 5 mg weekly and has decreased prednisone to 2.5 mg daily. Chest tightness and wheezing is much improved. Still with dyspnea on exertion (climbing stairs). Tolerating MTX well thus far. Does endorse fatigue for ~48 hours after taking weekly dose. Occasional headache and nausea. Encounter Diagnosis: SARCOIDOSIS, LUNG Order Only 12-Feb-2016 14:31 To 12-Feb-2016 15:53 Encounter Diagnosis: SARCOIDOSIS, LUNG [facility] Office Visit 21-Jan-2016 14:49 To 21-Jan-2016 15:51 Encounter Reason: Sarcoidosis - The last office visit was 3 month(s) ago. Management changes made at the last visit include ordering test(s) (VATS). Symptoms include cough, dyspnea and rash. Onset was gradual 2 year(s) a [facility] go. The symptoms occur constantly. The episodes occur daily. The patient describes this as severe and unchanged. Symptoms are exacerbated by exercise. Symptoms are relieved by corticosteroids. Associate d symptoms include localized paresthesias, while associated symptoms do not include anorexia or night sweats. Current treatment includes oral corticosteroids. By report there is good compliance with darrell atment. Pertinent medical history includes obesity. Note for "Sarcoidosis": Ms Han is a 40 yo woman followed by me since the summer for abnormal chest imaging and dyspnea. Sent for VATS bi opsy earlier this month with pathology demonstrating sarcoidosis. Currently on 5 mg daily of prednisone with incomplete symptom control. Encounter Diagnosis: ASTHMA, SARCOIDOSIS, LUNG, GERD (GASTROESOPHAGEAL REFLUX DISEASE), NEUROPATHY, ENVIRONMENTAL ALLERGIES Office Visit 26-Nov-2015 13:45 To 26-Nov-2015 14:37 Encounter Reason: Abnormal Chest Imaging - The referring provider is Dr. Khan. Radiographic findings include segmental atelectasis and other ( Mosaicism, mediastinal lymphadenopathy). Initial presentation was 6 month(s [facility] ) ago. Presentation included cough, dyspnea and wheezing. Past evaluation has included chest CT. Treatment has included antibiotics, bronchodilators and corticosteroids. Symptoms include cough, chest pa in and dyspnea. Onset was 18 month(s) ago. Onset followed a recent respiratory illness. The patient describes this as moderate in severity and unchanged. Symptoms are exacerbated by air pollutants, phys ical exertion and smoking. Symptoms are relieved by rest and irritant avoidance. Associated symptoms do not include fever, weight loss, rash or arthralgia. Current treatment includes bronchodilators and corticosteroids. By report there is good compliance with treatment. Pertinent medical history includes asthma. Risk factors do not include impaired immunity or [facility] residency. Note for "Abnorma l chest imaging": Since last visit the patient has done very will with prednisone taper. Competed 5 mg dose last week and has noted some mild recurrence of symptoms since then. [place] great on 10 mg dose. 11/26/2015: Following bronchoscopy patient had worsening of symptom control and prednisone was increased back to 10 mg. Since then patient has tapered to 5 mg and is doing well. Evaluated by thoracic chowdary magalys last week and plan for surgery at the beginning of December for lung biopsy and node sampling. Encounter Diagnosis: ABNORMAL CHEST CT Order Only 02-Nov-2015 12:03 To 02-Nov-2015 12:18 Encounter Diagnosis: ASCENDING AORTIC ANEURYSM, ABNORMAL CHEST CT [facility] Office Visit 15-Oct-2015 14:03 To 15-Oct-2015 16:30 Encounter Reason: Abnormal Chest Imaging - The referring provider is Dr. Khan. Radiographic findings include segmental atelectasis and other ( Mosaicism, mediastinal lymphadenopathy). Initial presentation was 6 month(s [facility] Office ) ago. Presentation included cough, dyspnea and wheezing. Past evaluation has included chest CT. Treatment has included antibiotics, bronchodilators and corticosteroids. Symptoms include cough, chest pa in and dyspnea. Onset was 18 month(s) ago. Onset followed a recent respiratory illness. The patient describes this as moderate in severity and unchanged. Symptoms are exacerbated by air pollutants, phys ical exertion and smoking. Symptoms are relieved by rest and irritant avoidance. Associated symptoms do not include fever, weight loss, rash or arthralgia. Current treatment includes bronchodilators and corticosteroids. By report there is good compliance with treatment. Pertinent medical history includes asthma. Risk factors do not include impaired immunity or [facility] residency. Note for "Abnorma l chest imaging": Since last visit the patient has done very will with prednisone taper. Competed 5 mg dose last week and has noted some mild recurrence of symptoms since then. [place] great on 10 mg dose. Encounter Diagnosis: DYSPNEA Office Visit 16-Jul-2015 15:14 To 16-Jul-2015 16:44 Encounter Reason: Abnormal Chest Imaging - The referring provider is Dr. Khan. Radiographic findings include segmental atelectasis and other ( Mosaicism, mediastinal lymphadenopathy). Initial presentation was 6 month(s [facility] ) ago. Presentation included cough, dyspnea and wheezing. Past evaluation has included chest CT. Treatment has included antibiotics, bronchodilators and corticosteroids. Symptoms include cough, chest pa in and dyspnea. Onset was 18 month(s) ago. Onset followed a recent respiratory illness. The patient describes this as moderate in severity and unchanged. Symptoms are exacerbated by air pollutants, phys ical exertion and smoking. Symptoms are relieved by rest and irritant avoidance. Associated symptoms do not include fever, weight loss, rash or arthralgia. Current treatment includes bronchodilators and corticosteroids. By report there is good compliance with treatment. Pertinent medical history includes asthma. Risk factors do not include impaired immunity or [facility] residency., [ADDITIONAL REASON] ASTHMA, FOLLOW UP - The patient's long-term asthma pattern may be classified as moderate persistent. The patient's asthma causes daytime symptoms most days. The patient's asthma cau ses night symptoms 1 to 2 times per month. Symptoms include chest tightness, shortness of breath, non-productive cough and chest pain. The patient describes the difficulty breathing as chest tightness a nd dyspnea on exertion. Onset of symptoms was sudden 18 month(s) ago. Onset followed symptoms of an upper respiratory infection. The episodes occur daily and last for 15 minutes. The patient describes t his as moderate in severity and unchanged. Symptoms are exacerbated by cold temperature and activity. Symptoms are relieved by rest. Associated symptoms include allergy symptoms. Current treatment inclu mere inhaled albuterol, inhaled long-acting beta-2 agonists, inhaled corticosteroids and leukotriene modifiers. The patient reports use of rescue bronchodilator 1 times a day. Bronchodilator use is stayi ng the same. By report there is fair compliance with treatment. The first episode of asthma occurred 18 month(s) ago. The episodes occur every 2 months. Pertinent medical history includes smoking (Jessica tobar smoker. Quit 2 years ago. 1 PPW x 20 years.) and gastroesophageal reflux. The patient has been exposed to tobacco smoke, animal dander and aspirin. The patient is currently able to do activities of da elías living with limitations, able to work with limitations and able to do housework with limitations. Previous presentation included chest tightness, shortness of breath and a non-productive cough. Encounter Diagnosis: ASTHMA, ASCENDING AORTIC ANEURYSM Order Only 03-Jul-2015 11:36 To 03-Jul-2015 11:37 Encounter Diagnosis: ASTHMA [facility] Office Historical Summary 03-Jul-2015 9:18 To 03-Jul-2015 9:34 Encounter Diagnosis: ASTHMA [place] [facility] Office Visit 24-Jun-2015 9:01 To 24-Jun-2015 12:04 Encounter Reason: ASTHMA, FOLLOW UP - The patient's long-term asthma pattern may be classified as moderate persistent. The patient's asthma causes daytime symptoms most days. The patient's asthma causes night symptoms 1 [facility] to 2 times per month. Symptoms include chest tightness, shortness of breath, non-productive cough and chest pain. The patient describes the difficulty breathing as chest tightness and dyspnea on exertio n. Onset of symptoms was sudden 18 month(s) ago. Onset followed symptoms of an upper respiratory infection. The episodes occur daily and last for 15 minutes. The patient describes this as moderate in se verity and unchanged. Symptoms are exacerbated by cold temperature and activity. Symptoms are relieved by rest. Associated symptoms include allergy symptoms. Current treatment includes inhaled albuterol , inhaled long-acting beta-2 agonists, inhaled corticosteroids and leukotriene modifiers. The patient reports use of rescue bronchodilator 1 times a day. Bronchodilator use is staying the same. By repor t there is fair compliance with treatment. The first episode of asthma occurred 18 month(s) ago. The episodes occur every 2 months. Pertinent medical history includes smoking (Former smoker. Quit 2 year s ago. 1 PPW x 20 years.) and gastroesophageal reflux. The patient has been exposed to tobacco smoke, animal dander and aspirin. The patient is currently able to do activities of daily living with limit ations, able to work with limitations and able to do housework with limitations. Previous presentation included chest tightness, shortness of breath and a non-productive cough., [ADDITIONAL REASON] Abnormal Chest Imaging - The referring provider is Dr. Khan. Radiographic findings include segmental atelectasis and other ( Mosaicism, mediastinal lymphadenopathy). Initial prese ntation was 6 month(s) ago. Presentation included cough, dyspnea and wheezing. Past evaluation has included chest CT. Treatment has included antibiotics, bronchodilators and corticosteroids. Symptoms in clude cough, chest pain and dyspnea. Onset was 18 month(s) ago. Onset followed a recent respiratory illness. The patient describes this as moderate in severity and unchanged. Symptoms are exacerbated by air pollutants, physical exertion and smoking. Symptoms are relieved by rest and irritant avoidance. Associated symptoms do not include fever, weight loss, rash or arthralgia. Current treatment include s bronchodilators and corticosteroids. By report there is good compliance with treatment. Pertinent medical history includes asthma. Risk factors do not include impaired immunity or [facility] residency. Encounter Diagnosis: ASTHMA, ASCENDING AORTIC ANEURYSM Historical Summary 24-Jun-2015 8:33 To 24-Jun-2015 8:45 [facility] Office Payers [facility] [address] [address] [facility] [address] Group Number: [id number] tel: Josephine Han [address] [place] [address] tel:
--- OUTSIDE RECORDS SUMMARY | 2018-08-08 07:42 | XMS REPORT | Continuity of Care Document ---
:1975 Author Organization [facility] Office Address [address] [place] [address] Phone Care Team Providers Name Role Phone [...] days Ordered: 26-Apr-2018 Start: 26-Apr-2018 Quantity: 90 [facility] GOMEZ Refills: 3 RaNITidine HCl 150 [...] (1.25 Comments: Medication taken as needed. MG/3ML) Procedures EXHALED NITRIC OXIDE MEASUREMENT YOLANDA BarnesN Karla Status: Completed 2017 (66047) REST OXIMETRY (52233) Pooja Melgar Status: Completed 21-Aug-2017 RESPIRATORY FLOW VOLUME LOOP Pooja Melagr Status: Completed 21-Aug-2017 ([id number]) RESPIRATORY FLOW VOLUME LOOP MD Daiana Blair Status: Completed 01-Dec-2016 ([id number]) PRE AND POST W/ RT (37581) MD Daiana Blair Status: Completed 01-Dec-2016 RESPIRATORY FLOW VOLUME LOOP MD Daiana Blair Status: Completed 01-Sep-2016 (05089) PRE AND POST W/ RT (57326) MD Daiana Blair Status: Completed 01-Sep-2016 AIRFLOW RESISTANCE MEASUREMENT: MD Daiana Blair Status: Completed 2015 PULM FUNCT TEST OSCILLOMETRY (55213) TOTAL VITAL CAPACITY (82239) MD Daiana Blair Status: Completed 22-Mar-2016 TOTAL BODY PLETHYSMOGRAPHY: AIRWAY MD Daiana Blair Status: Completed Feb-2016 CLOSING VOLUME MEASUREMENT: PULM FUNCT TST PLETHYSMOGRAP (27372) RESPIRATORY FLOW VOLUME LOOP MD Daiana Blair Status: Completed 22-Mar-2016 (20066) THORACIC GAS VOLUME: AIRWAY MD Daiana Blair Status: Completed 22-Mar-2016 CLOSING VOLUME MEASUREMENT: PULM FUNCTION TEST BY GAS (01069) DLCO (CARBON MONOXIDE DIFFUSING MD Daiana Blair Status: Completed 2015 CAPACITY) (33167) PRE AND POST (00771) MD Daiana Blair Status: Completed 22-Mar-2016 RESPIRATORY FLOW VOLUME LOOP MD Daiana Blair Status: Completed 24-Jun-2015 ([id number]) FeNO VERONICA Barnes Status: Completed Comments: 15 PPB Flu Vaccine YOLANDA BarnesN Karla Status: Completed 14-Aug-2017 Comments: Workplace Flu Vaccine YOLANDA BarnesN Karla Status: Completed 29-Sep-2015 PFT MD Daiana [...] EXHALED NITRIC OXIDE MEASUREMENT Date: 26-Dec-2017 11:08 ([id number])Result: YOLANDA BarnesN Karla [Questions] Use of inhaled or oral corticosteroid: #14 Comments: Evaluated patient's nitric oxide. The results were ppb. Procedure: PRE AND POST W/ RT ([id number])Result: Date: 21-Aug-2017 14:58 Hemoptysis: No Status: Completed 21-Aug-2017 15:02 MD Daiana Blair Procedure: CT THORAX W/O DYE ([id number])Result: Status: Completed 01-Dec-2016 16:05 Are you or could you become MD Daiana Blair ?: No; When was you last CXR/CT?: over week ago; Long Wall Shear Operator: DIAN Díaz Procedure: CT THORAX W/O DYE ([id number])Result: Status: Completed 01-Dec-2016 8:59 Are you or could you become MD Daiana Blair ?: No; When was you last CXR/CT?: over week ago; Long Wall Shear Operator: DIAN Díaz Procedure: CT THORAX W/O DYE ([id number])Result: Status: Completed 15-Oct-2015 14:22 Are you or could you become MD Daiana Blair ?: No; When was you last CXR/CT?: OVER A WEEK AGO; Long Wall Shear Operator: DIAN Díaz Procedure: PRE AND POST (21281)Result: Status: Completed 24-Jun-2015 9:23 Hemoptysis: No MD Daiana Blair Procedure: CHEST X-RAY, PA AND LATERAL Date: 24-Jun-2015 9:02 ([id number])Result: Status: Completed 24-Jun-2015 9:03 Are you or could you become MD Daiana Blair ?: No; When was you last CXR/CT?: over a week ago; Long Wall Shear Operator: DIAN Díaz Immunizations Influenza (3 years and [...] PULM Start: 17-Jan-2019 Intent FUNCT TEST OSCILLOMETRY (33210) DLCO (CARBON MONOXIDE DIFFUSING Start: 17-Jan-2019 Intent CAPACITY) (86445) EXHALED GAS NITRIC OXIDE MEASUREMENT Start: 17-Jan-2019 Intent (MOLES/VOLUME) (34309) PRE AND POST (98956) Start: 17-Jan-2019 Intent RESPIRATORY FLOW VOLUME LOOP (59608) Start: 17-Jan-2019 Intent THORACIC GAS VOLUME: AIRWAY CLOSING Start: 17-Jan-2019 Intent VOLUME MEASUREMENT: PULM FUNCTION TEST BY GAS (76262) TOTAL BODY PLETHYSMOGRAPHY: AIRWAY Start: 17-Jan-2019 Intent CLOSING VOLUME MEASUREMENT: PULM FUNCT TST PLETHYSMOGRAP (80065) TOTAL VITAL CAPACITY (38207) Start: 17-Jan-2019 Intent COMPLETE ECHOCARDIOGRAPHY (83053) Start: 26-Dec-2017 Intent Comments: CV Group CXR PA & LAT (37764) Start: 26-Dec-2017 Intent COMPLETE ECHOCARDIOGRAPHY (53239) Start: 25-Jan-[address] HIP WO CONTRAST (73283) Start: 01-Sep-2016 Intent Comments: Avascular Necrosis ECHOCARDIOGRAM (36331) Start: 02-Nov-2015 Intent BRONCHOSCOPY WITH FLUOROSCOPY (48938) Start: 15-Oct-2015 Intent BRONCHOSCOPY IN ENDO (82031) Start: 24-Jun-2015 Intent Medical; FULL PFT 30 - Start: 16-Jan-2019 10:15 Appointment Request Pulmonary [facility]; FOLLOW UP 15 - 6 mnth fu 15 w/full Start: 16-Jan-2019 10:45 Appointment Request Pulmonary [facility] Office MD Daiana Blair Influenza A+B Ag, EIA ([id number]) Start: 21-Nov-2017 9:18 Request Comments: Rapid flu swab for Influenza A&B and RSV. COMPREHENSIVE METABOLIC PANEL, CMP (43779) Start: 21-Aug-2017 15:27 Request ANGTENSIN 1-CONVRT ENZYM (34735) Start: 21-Aug-2017 15:27 Request CBC & PLATELETS (53992) Start: 22-Mar-2016 12:05 Request COMPREHENSIVE METABOLIC PANEL, CMP ([id number]) Start: 22-Mar-2016 12:05 Request CBC, PLATELETS & AUT DIFF (56178) Start: 21-Jan-2016 15:31 Request FERRITIN (44355) Start: 21-Jan-2016 15:31 Request IRON BINDING CAPACITY (TIBC) (15381) Start: 21-Jan-2016 15:31 Request IRON ([id number]) Start: 21-Jan-2016 15:31 Request COMPREHENSIVE METABOLIC PANEL, CMP (52623) Start: 21-Jan-2016 15:30 Request PTT (ACTIVATED PARTIAL THROMBOPLASTIN TIME) (14272) Start: 03-Jul-2015 11:36 Request PT (PROTHROMBIN TIME) (86042) Start: 03-Jul-2015 11:36 Request HYPERSENS PNEUMO 2 (59849) Start: 24-Jun-2015 10:44 Request HYPERSENS PNEUMO 1 (26700) Start: 24-Jun-2015 10:44 Request BRAIN NATIURETIC PEPTIDE ([id number]) Start: 24-Jun-2015 10:44 Request ASCENDING AORTIC ANEURYSM : Referral to Cardiology - CV Group Dr. Blair Indication: ASCENDING AORTIC ANEURYSM SARCOIDOSIS, LUNG : Referral to Rheumatology - [facility] Indication: SARCOIDOSIS, LUNG DYSPNEA : Pt Education: Bronchoscopy Indication: DYSPNEA ASCENDING AORTIC ANEURYSM : Referral to Cardiology - [facility] [place] Dr. Blair Indication: ASCENDING AORTIC ANEURYSM ASTHMA : Pt Education: Bronchoscopy Indication: ASTHMA ASCENDING AORTIC ANEURYSM : Referral to Cardiology - [facility]. Aortic aneurysm and tachycardia. Indication: ASCENDING AORTIC ANEURYSM Results COMPREHENSIVE METABOLIC Ordered On: 31-Aug-2016 9:34 PANEL, CMP ([id number]) 31-Aug-2016 GFR INTERPRETATION (Normal) Comments: NORMAL KIDNEY FUNCTION OR MILD DISEASE - GFR >OR=60CHRONIC KIDNEY DISEASE - GFR 15 - 59RENAL FAILURE - GFR <15 Est. GFR calculation based on the MDRDstudy equation, which assumes a steadystate for creatinine. Est. GFR should notbe used for medication dosing.Unless otherwise specified, testing performed by [facility] [address] [place] [address] GFR ( AMER) >60 {ml/min/1.73m2} (Normal) GFR [...] & AUT DIFF Ordered On: 31-Aug-2016 9:34 ([id number]) 31-Aug-2016 BASO # 0.1 10*3/uL (Normal) Range: 0.0 10*3/uL - 0.2 10*3/uL Comments: Unless otherwise specified, testing performed by [facility], [address] [address] EOS # 0.6 10*3/uL (Abnormal) Range: 0.0 [...] On: 03-Jul-2015 11:37 Comments: Please run manual ([id number]) differential 03-Jul-2015 CBC COMMENTS scanned (Normal) BLOOD [...] 11.0 10*9{Cells}/L (Normal) A. FUMIGATUS IGE @ (35989) Ordered On: 24-Jun-2015 10:46 24-Jun-2015 A. FUMIGATUS IGE @ scanned (Normal) IMMUNOGLOBULIN E (IgE) Ordered On: 24-Jun-2015 10:46 ([id number]) 24-Jun-2015 IMMUNOGLOBULIN E (IgE) Range: 0 mg/dL - 380 mg/dL scanned mg/dL (Normal) BASIC METABOLIC PANEL, BMP Ordered On: 24-Jun-2015 10:46 ([id number]) 24-Jun-2015 GLUCOSE scanned mg/dL Range: 75 mg/dL [...] CF & Ordered On: 24-Jun-2015 10:46 ID ([id number]) 24-Jun-2015 ASPIRGILLUS ANTIBODY scanned (Normal) ANGTENSIN 1-CONVRT ENZYM Ordered On: 24-Jun-2015 10:46 ([id number]) 24-Jun-2015 ANGTENSIN 1-CONVRT ENZYM scanned (Normal) Vital [...] 2016 Scanned Document is available upon request. Encounters Office Visit 19-Jul-2018 8:40 To 19-Jul-2018 11:55 Encounter Reason: Sarcoidosis - The last office visit was 7 month(s) ago. Management changes made at the last visit include adding medication (Prednisone taper). Symptoms include cough and dyspnea. Onset was gradual year [facility] Office (s) ago. The symptoms occur intermittently. [...] rheumatology next week. Recent hip imaging with cristinejosé magdalenofrancheska melgoza.08/21/2017: Since last visit Josephine has remains [...] (CXR). Symptoms include cough and d Pulmonary [facility] yspnea. Onset was gradual [...] 26-Dec-2017 10:21 Encounter Diagnosis: SARCOIDOSIS, LUNG Pulmonary [facility] Office Medication Order 30-Nov-2017 11:24 To 30-Nov-2017 11:26 Encounter Diagnosis: SARCOIDOSIS, LUNG [facility] Phone Encounter 21-Nov-2017 11:07 To 21-Nov-2017 11:10 Encounter Diagnosis: INFLUENZA B Pulmonary [facility] Office Visit 21-Nov-2017 8:43 To 21-Nov-2017 9:47 Encounter Reason: Flu like symptoms - The onset of the flu like symptoms has been acute and they have been occurring in a persistent pattern for 3 days. The flu like symptoms are described as moderate. Note for "Flu like [facility] symptoms": Fever started Monday night. + [...] 25-Jan-2017 16:30 Encounter Diagnosis: ASCENDING AORTIC ANEURYSM Pulmonary [facility] Office Visit 01-Dec-2016 8:53 To 01-Dec-2016 9:45 Encounter Reason: Sarcoidosis - The last office visit was 3 month(s) ago. Management changes made at the last visit include ordering test(s) (VATS). Symptoms include cough, dyspnea and rash. Onset was gradual 2 year(s) a [facility] go. The symptoms occur constantly. The [...] rash. Onset was gradual 2 year(s) a [facility] go. The symptoms occur constantly. The [...] rash. Onset was gradual 2 year(s) a [facility] go. The symptoms occur constantly. The [...] To 03-May-2016 16:57 Encounter Diagnosis: SARCOIDOSIS, LUNG [facility] Office Medication Order 04-Apr-2016 10:30 To 04-Apr-2016 11:00 Encounter Diagnosis: GERD (GASTROESOPHAGEAL REFLUX DISEASE) [facility] Office Medication Order 01-Apr-2016 11:37 To 01-Apr-2016 11:38 Encounter Diagnosis: SARCOIDOSIS, LUNG [facility] Office Office Visit 22-Mar-2016 11:17 To 22-Mar-2016 12:17 Encounter Reason: Sarcoidosis - The last office visit was 3 month(s) ago. Management changes made at the last visit include ordering test(s) (VATS). Symptoms include cough, dyspnea and rash. Onset was gradual 2 year(s) a [facility] Office go. The symptoms occur constantly. The [...] 12-Feb-2016 15:53 Encounter Diagnosis: SARCOIDOSIS, LUNG [facility] Office Visit 21-Jan-2016 14:49 To 21-Jan-2016 15:51 Encounter Reason: Sarcoidosis - The last office visit was 3 month(s) ago. Management changes made at the last visit include ordering test(s) (VATS). Symptoms include cough, dyspnea and rash. Onset was gradual 2 year(s) a [facility] Office go. The symptoms occur constantly. The [...] mediastinal lymphadenopathy). Initial presentation was 6 month(s [facility] ) ago. Presentation included cough, dyspnea [...] factors do not include impaired immunity or [facility] residency. Note for "Abnorma l chest imaging": Since last visit the patient has done very will with prednisone taper. Competed 5 mg dose last week and has noted some mild recurrence of symptoms since then. [place] great on 10 mg dose. 11/26/2015: Following [...] Diagnosis: ASCENDING AORTIC ANEURYSM, ABNORMAL CHEST CT [facility] Office Visit 15-Oct-2015 14:03 To 15-Oct-2015 16:30 Encounter Reason: Abnormal Chest Imaging - The referring provider is Dr. Khan. Radiographic findings include segmental atelectasis and other ( Mosaicism, mediastinal lymphadenopathy). Initial presentation was 6 month(s [facility] ) ago. Presentation included cough, dyspnea [...] factors do not include impaired immunity or [facility] residency. Note for "Abnorma l chest imaging": Since last visit the patient has done very will with prednisone taper. Competed 5 mg dose last week and has noted some mild recurrence of symptoms since then. [place] great on 10 mg dose. Encounter Diagnosis: DYSPNEA Office Visit 16-Jul-2015 15:14 To 16-Jul-2015 16:44 Encounter Reason: Abnormal Chest Imaging - The referring provider is Dr. Khan. Radiographic findings include segmental atelectasis and other ( Mosaicism, mediastinal lymphadenopathy). Initial presentation was 6 month(s [facility] ) ago. Presentation included cough, dyspnea and [...] factors do not include impaired immunity or [facility] residency., [ADDITIONAL REASON] ASTHMA, FOLLOW UP - [...] 2 months. Pertinent medical history includes smoking (Forme r smoker. Quit 2 years ago. 1 PPW [...] To 03-Jul-2015 11:37 Encounter Diagnosis: ASTHMA [facility] Office Historical Summary 03-Jul-2015 9:18 To 03-Jul-2015 9:34 Encounter Diagnosis: ASTHMA [facility] Office Office Visit 24-Jun-2015 9:01 To 24-Jun-2015 12:04 Encounter Reason: ASTHMA, FOLLOW UP - The patient's long-term asthma pattern may be classified as moderate persistent. The patient's asthma causes daytime symptoms most days. The patient's asthma causes night symptoms 1 [facility] Office to 2 times per month. Symptoms [...] factors do not include impaired immunity or [facility] residency. Encounter Diagnosis: ASTHMA, ASCENDING AORTIC ANEURYSM Historical Summary 24-Jun-2015 8:33 To 24-Jun-2015 8:45 [facility] Payers [facility] [address] [address] [facility] [id number] Group Number: NONE tel: Josephine Han [address] [place] [address] tel:
[2018-08-08 07:46] VITALS: BP 134/74
--- NOTE | 2018-08-08 08:42 | UC ---
Complaint Female HPI - HPI Summary HPI Summary: 43-year-old woman comes in with complaint of burning with urination and increased urinary frequency. Says started last night. No fevers. She does have some discomfort in the bladder area and no pain in the flanks. No concern of STI. She's had urinary tract infections before and this feels like that. - History Of Current Complaint Chief Complaint: UCGU Stated Complaint: URINARY Time Seen by Provider: 08/08/18 08:33 Hx Last Menstrual Period: 01/08/16 Pain Intensity: 3 - Allergies/Home Medications Allergies/Adverse Reactions: Allergies Allergy/AdvReac Type Severity Reaction Status Date / Time levofloxacin [From Levaquin] Allergy Intermediate Hives Verified 08/08/18 07:47 Home Medications: Home Medications Ramipril CAP* [Altace CAP*] 2.5 mg PO DAILY 08/08/18 [History Confirmed 08/08/18 ] PMH/Surg Hx/FS Hx/Imm Hx Cardiovascular History: Hypertension - Surgical History Surgical History: Yes Surgery Procedure, Year, and Place: lung biopsy- 01/06/16 - Family History Known Family History: Positive: None, Diabetes - Social History Alcohol Use: Occasionally Substance Use Type: None Smoking Status (MU): Former Smoker When Did the Patient Quit Smoking/Using Tobacco: 2013 - Immunization History Most Recent Influenza Vaccination: 2014 Review of Systems Constitutional: Negative Skin: Negative Eyes: Negative ENT: Negative Respiratory: Negative Cardiovascular: Negative Gastrointestinal: Other - SEE HPI Genitourinary: Dysuria, Frequency, Urgency Motor: Negative Neurovascular: Negative Musculoskeletal: Negative Neurological: Negative Psychological: Negative Is Patient Immunocompromised?: No All Other Systems Reviewed And Are Negative: Yes Physical Exam Triage Information Reviewed: Yes Appearance: Well-Appearing, No Pain Distress, Well-Nourished Vital Signs: Initial Vital Signs Temp 98.5 F 08/08/18 07:41 Pulse 75 08/08/18 07:41 Resp 18 08/08/18 07:41 BP 134/74 08/08/18 07:41 Pulse Ox 99 08/08/18 07:41 Vital Signs Reviewed: Yes Eye Exam: Normal Eyes: Positive: Conjunctiva Clear Neck exam: Normal Neck: Positive: Supple Respiratory: Positive: Lungs clear, Normal breath sounds, No respiratory distress Cardiovascular: Positive: RRR Abdomen Description: Positive: Other: - Is mild tenderness to palpation in the suprapubic area. Abdomen is nontender otherwise. Bowel Sounds: Positive: Present Musculoskeletal Exam: Normal Musculoskeletal: Positive: Strength Intact, ROM Intact Neurological Exam: Normal Neurological: Positive: Alert, Muscle Tone Normal Psychological Exam: Normal Psychological: Positive: Age Appropriate Behavior Skin Exam: Normal Complaint Female Dx - Differential Dx/Diagnosis Provider Diagnoses: UTI Discharge - Sign-Out/Discharge Documenting (check all that apply): Patient Departure All imaging exams completed and their final reports reviewed: No Studies - Discharge Plan Condition: Stable Disposition: HOME Prescriptions: Ondansetron ODT TAB* [Zofran 4 MG Odt TAB*] 4 mg PO Q6H PRN #10 tab.odt PRN Reason: Nausea Sulfamethox/Trimethoprim DS* [Bactrim DS 800/160 TAB*] 1 tab PO BID #14 tab Patient Education Materials: Urinary Tract Infection in Women (ED) Referrals: Evaristo Wood [Primary Care Provider] - Additional Instructions: FOLLOW UP WITH YOUR DOCTOR IF NOT COMPLETELY IMPROVED. GET RECHECKED FOR ANY WORSENING OF YOUR CONDITION OR QUESTIONS OR CONCERNS. - Billing Disposition and Condition Condition: STABLE Disposition: Home
--- NOTE | 2018-08-10 09:13 | UC ---
- Progress Note Progress Note: + citrobacter on bactrim await sensitivity n pérez ljj 08/10/18 Discharge - Sign-Out/Discharge Documenting (check all that apply): Post-Discharge Follow Up All imaging exams completed and their final reports reviewed: No Studies - Discharge Plan Condition: Stable Disposition: HOME Prescriptions: Ondansetron ODT TAB* [Zofran 4 MG Odt TAB*] 4 mg PO Q6H PRN #10 tab.odt PRN Reason: Nausea Sulfamethox/Trimethoprim DS* [Bactrim DS 800/160 TAB*] 1 tab PO BID #14 tab Patient Education Materials: Urinary Tract Infection in Women (ED) Referrals: Evaristo Wood [Primary Care Provider] - Additional Instructions: FOLLOW UP WITH YOUR DOCTOR IF NOT COMPLETELY IMPROVED. GET RECHECKED FOR ANY WORSENING OF YOUR CONDITION OR QUESTIONS OR CONCERNS. - Billing Disposition and Condition Condition: STABLE Disposition: Home
== END 2018-08-08 08:48 | disposition home or self-care (01) ==
LOC: UCCORT 07:25
DX: N39.0 Urinary tract infection, site not specified (principal); B96.89 Other specified bacterial agents as the cause of diseases classified elsewhere; Z87.440 Personal history of urinary (tract) infections; Z88.1 Allergy status to other antibiotic agents; I10 Essential (primary) hypertension; Z87.891 Personal history of nicotine dependence
CPT/HCPCS: 81003; 87077; 87086; 87186; 99212; G0463